=== PATIENT | female | born 1985 | race Asian ===

== ENCOUNTER 2024-12-06 18:27 | Emergency (ER) | payer OTHER ==
[~2024-12-06] VITALS: Ht 172.7 cm; Wt 95.3 kg
[2024-12-06] MEDS ORDERED: LORTAB (18:48)
[2024-12-06] MEDS ORDERED: DEPAKOTE (18:48)
[2024-12-06] MEDS ORDERED: PRILOSEC (18:48)
[2024-12-06] MEDS ORDERED: BENADRYL (18:48)
[2024-12-06] MEDS ORDERED: NEURONTIN (18:48)
[2024-12-06 20:03] LABS: HEMATOCRIT 37.3 % (31.2-41.9); HEMOGLOBIN 12.4 g/dL (10.9-14.3); LYMPHOCYTES # (AUTO) 1.6 K/uL (0.8-4.8); LYMPHOCYTES % (AUTO) 23.3 % (20.5-51.5); MEAN CORPUSCULAR HEMOGLOBIN 28.3 uug (24.7-32.8); MEAN CORPUSCULAR HGB CONC 33 g/dL (32.3-35.6); MEAN CORPUSCULAR VOLUME 85.3 fL (75.5-95.3); MONOCYTES # (AUTO) 1.6 K/uL (0.1-1.30); MONOCYTES % (AUTO) 23.3 % (0.0-11.0); NEUTROPHILS # (AUTO) 3.6 K/uL (1.8-8.9); NEUTROPHILS % (AUTO) 53.4 % (38.5-71.5); PLATELET COUNT (AUTO) 261 K/uL (179-408); RED BLOOD CELL COUNT(AUTO) 4.37 MIL/uL (3.63-4.92); RED CELL DISTRIBUTION WIDTH 15.2 % (12.3-17.7); WHITE BLOOD COUNT (AUTO) 6.8 K/uL (3.8-11.8)
[2024-12-06 20:05] LABS: *BILIRUBIN,URIN NEGATIVE (NEGATIVE); *BLOOD, URINE NEGATIVE (NEGATIVE); *CLARITY,URINE CLEAR (CLEAR); *COLOR,URINE YELLOW (YELLOW); *KETONES,URINE NEGATIVE (NEGATIVE); *PROTEIN,URINE NEGATIVE (NEGATIVE); *UROBILINOGEN,URINE 0.2 E.U./dl (NORMAL); NITRITE, URINE NEGATIVE (NEGATIVE); UGLUCOSE NEGATIVE (NEGATIVE)
[2024-12-06 20:07] LABS: DIFFERENTIAL COMMENT 1
[2024-12-06 20:10] LABS: LYMPHOCYTES % (MANUAL) 25 % (20-40); NEUTROPHILS % (MANUAL) 50 % (42-75)
[2024-12-06 20:11] LABS: BASOPHILS % (MANUAL) 0 % (0-2); EOSINOPHILS % (MANUAL) 0 % (0-8); MONOCYTES % (MANUAL) 25 % (2-10)
[2024-12-06 20:31] LABS: ALBUMIN 3.4 g/dL (3.4-5.0); BILIRUBIN,DIRECT 0.2 mg/dL (0.0-0.2); BILIRUBIN,TOTAL 0.3 mg/dL (0.2-1.0); CALCIUM 9.1 mg/dL (8.5-10.1); CREATININE 0.7 mg/dL (0.6-1.3); LACTIC ACID 2.7 mmol/L (0.4-2.0); POTASSIUM 3.8 mmol/L (3.5-5.1); TOTAL PROTEIN, SERUM 7.5 g/dL (6.4-8.2)
[2024-12-06 20:32] LABS: LEUKOCYTE ESTERASE ,URINE NEGATIVE (NEGATIVE)
[2024-12-06] MEDS ORDERED: VANCOMYCIN IV 200 ML ONE (20:53)
[2024-12-06] MEDS ORDERED: PIPERACILLIN/TAZOBACTAM/D5W 50 ML IV ONE (20:53)
[2024-12-06] MEDS: PIPERACILLIN SODIUM/TAZOBACTAM 3.375 G in IV DEXTROSE 5% 50 ML IV ONE (21:16)
[2024-12-06] MEDS: IV NORMAL SALINE 1000 ML BAG IV ONE (21:24)
[2024-12-06] MEDS: VANCOMYCIN IV 1,000 MG in IV DEXTROSE 5% 250 ML IV ONE (21:24)
[2024-12-07 05:55] VITALS: O2SAT 97
== END 2024-12-07 06:00 | disposition short-term general hospital (02) ==
LOC: ER 18:27
DX: A41.9 Sepsis, unspecified organism (principal); Z85.3 Personal history of malignant neoplasm of breast; Z20.822 Contact with and (suspected) exposure to COVID-19
CPT/HCPCS: 99291; 96365; 96366; 87426; 87804; 80076; 80048; 81003; 85025; 84145; 85730; 87040 ×2; 36415 ×2; 71045; 93005; 96368; 83605 ×3; 85007; J2543; J3370; J7040; 70030-TC; A4606; A4663